=== PATIENT | male | born 1985 | race Hispanic/Latino ===

== ENCOUNTER 2024-08-30 14:48 | Emergency (ER) | payer BC ==
[2024-08-30] MEDS ORDERED: KETOROLAC 30 MG/ML INJ ONE (15:31)
[2024-08-30] MEDS ORDERED: NA CHLORIDE 0.9% 1,000 ML ONE (15:31)
[2024-08-30] MEDS ORDERED: ONDANSETRON 4 MG/2 ML VIAL ONE (15:31)
[2024-08-30 15:52] LABS: Absolute Basophils 0.1 K/uL (0-0.5); Absolute Eosinophils 0.1 K/uL (0-0.5); Absolute Lymphocytes (CBC) 1.9 K/uL (0.7-4.9); Absolute Monocytes 0.6 K/uL (0.1-1.3); Absolute Neutrophil 6.5 K/uL (1.8-8.0); Eosinophils % 1.6 % (0-4.4); Hematocrit 44.1 % (39.6-49.0); Lymphocytes % 20.9 % (15.3-44.8); MCH 29.4 pg (27.0-35.0); MCHC 36.4 g/dL (32.0-36.0); MCV 80.7 fL (80-100); MPV 8.4 fL (7.6-11.3); Monocytes % 6.8 % (3.3-12.3); Neutrophils % 69.7 % (41.7-73.7); Nucleated RBC Absolute Count 0.2 (0-0); Nucleated Red Blood Cells % 1.6 % (0-0); Platelets 255 thou/uL (152-406); RBC Red Blood Cell Count 5.46 M/uL (4.33-5.43)
[2024-08-30 16:17] LABS: Albumin 3.9 g/dL (3.4-5.0); Albumin/Globulin Ratio 1.1 (1.1-1.8); Anion Gap 13.7 mEq/L (5.0-15.0); Globulin 3.7 g/dL (2.3-3.5); Potassium 3.7 mEq/L (3.5-5.1); Protein, Total 7.6 g/dL (6.4-8.2)
--- NOTE | 2024-08-30 17:39 | RAD REPORT ---
EXAMINATION: CT Abdomen Pelvis W Contrast CLINICAL INDICATION: Male, 38 years old. ABD PAIN TECHNIQUE: CT abdomen and pelvis was performed, after the administration of IV contrast, as [facility]. Axial, sagittal and coronal reconstructions were obtained. One or more of the following dose reduction techniques were used: Automated exposure control, adjustment of the mA and k V according to patient size, and iterative reconstruction. Unless otherwise specified, incidental findings do not require dedicated imaging follow-up. COMPARISON: No prior exam. FINDINGS: LOWER CHEST: The visualized lung bases are clear. LIVER: Mild fatty liver is present. No focal lesion or biliary dilataion is seen. BILIARY SYSTEM: No suspicious abnormalities. SPLEEN: Normal size. No focal lesion. PANCREAS: No mass, ductal dilation, or luann-pancreatic fluid. ADRENALS: Normal; no mass. KIDNEYS: Normal size and contour. No hydronephrosis. URINARY BLADDER: Unremarkable. GASTROINTESTINAL TRACT: No evidence of free air, significant intra-abdominal free fluid, bowel obstru ction or abscess. APPENDIX: Normal appendix. LYMPH NODES: No lymphadenopathy. MUSCULOSKELETAL: No acute or suspicious osseous abnormality. ADDITIONAL FINDINGS: None. IMPRESSION: No acute abnormalities seen in the abdomen or pelvis. Diffuse hepatic steatosis.
--- NOTE | 2024-08-30 17:49 | EDPHYS ---
Physician Documentation [facility] Name: Jaspal Rivera Age: 38 yrs Sex: Male : 1985 Arrival Date: 08/30/2024 Time: 14:48 Bed 11 Private MD: ED Physician Myles Ng HPI: 08/30 14:54 This 38 yrs old Male presents to ER via Unassigned with complaints of kb Abdominal Pain, Vomiting. 14:54 Pt is a 38 year old male who presents for LLQ pain that has been intermittent for a kb couple of months. States he started having nausea, dry heaving and dizziness 2 days ago at work so he went home and it got better. States he started having LLQ pain and nausea again today. . Historical: - Allergies: 14:58 Amoxicillin; ll1 - Home Meds: 14:58 None [Active]; ll1 - PMHx: 14:58 Pancreatitis; High Cholesterol; ll1 - PSHx: 14:58 None; ll1 - Immunization history:: Adult Immunizations up to date. - Infectious Disease History:: Denies. - Social history:: Smoking status: Patient denies any tobacco usage or history of. ROS: 14:56 Constitutional: As per HPI kb Exam: 14:57 Constitutional: This is a well developed, well nourished patient who is awake, alert, kb and in no acute distress. Head/Face: Normocephalic, atraumatic. ENT: Moist Mucous membranes Cardiovascular: Regular rate Respiratory: Respirations even and unlabored. No increased work of breathing. Talking in full sentences Skin: Warm, dry with normal turgor. Normal color. MS/ Extremity: Pulses equal, no cyanosis. Neurovascular intact. Full, normal range of motion. Neuro: Awake and alert, GCS 15, oriented to person, place, time, and situation. 14:57 Abdomen/GI: Inspection: abdomen appears normal, Bowel sounds: normal, Palpation: soft, in all quadrants, mild abdominal tenderness, in the left lower quadrant, Vital Signs: 14:58 BP 193 / 121; Pulse 92; Resp 18; Temp 98.5; Pulse Ox 100% ; Weight 108.86 kg; Height 5 ll1 ft. 11 in. ; Pain 5/10; 16:13 BP 163 / 111; Pulse 66; Resp 18; Pulse Ox 100% on R/A; mb9 17:35 BP 150 / 100; Pulse 60; Resp 16; Pulse Ox 100% on R/A; mb9 18:16 BP 155 / 98; Pulse 67; Resp 18; Pulse Ox 100% on R/A; mb9 14:58 Body Mass Index 33.47 (108.86 kg, 180.34 cm) ll1 14:58 Pain Scale: Adult ll1 MDM: 14:52 Medical Screening Exam initiated kb 17:48 Differential diagnosis: diverticulitis, gastritis, gastroesophageal reflux disease, kb non-specific abd pain, pancreatitis, Peptic Ulcer Disease, Ureterolithiasis, urinary tract infection. Data reviewed: vital signs, nurses notes. Counseling: I had a detailed discussion with the patient and/or guardian regarding the historical points, exam findings, and any diagnostic results supporting the discharge/admit diagnosis, lab results, radiology results, the need for outpatient follow up, a family practitioner, to return to the emergency department if symptoms worsen or persist or if there are any questions or concerns that arise at home. 08/30 14:56 Order name: CBC with Diff; Complete Time: 16:03 kb 08/30 14:56 Order name: CMP; Complete Time: 16:19 kb 08/30 14:56 Order name: Lipase; Complete Time: 16:19 kb 08/30 14:56 Order name: CPK; Complete Time: 16:19 kb 08/30 14:56 Order name: CT Abd/Pelvis - IV Contrast Only; Complete Time: 17:42 kb 08/30 14:56 Order name: IV Saline Lock; Complete Time: 15:47 kb 08/30 14:56 Order name: Labs collected and sent; Complete Time: 15:47 kb Administered Medications: 15:42 Drug: Ondansetron IVP 4 mg IVP once; over 2 minutes Route: IVP; Site: right forearm; mb9 16:23 Follow up: Response: No adverse reaction mb9 15:47 Drug: TORadol - Ketorolac IVP 15 mg IVP once Route: IVP; Site: right forearm; mb9 16:23 Follow up: Response: No adverse reaction mb9 15:47 Drug: NS 0.9% IV 1000 ml IV at 1 bolus Per protocol; to be given as a bolus over 60 mb9 minutes Route: IV; Rate: 1 bolus; Site: right forearm; 17:35 Follow up: Response: No adverse reaction; IV Status: Completed infusion mb9 Disposition Summary: 08/30/24 17:49 Discharge Ordered Notes: Location: Home kb Condition: Stable kb Diagnosis - Lower abdominal pain, unspecified kb Followup: kb - With: Emergency Department - When: As needed - Reason: Worsening of condition Followup: kb - With: Private Physician - When: 2 - 3 days - Reason: Recheck today's complaints, Continuance of care, Re-evaluation by your physician Discharge Instructions: - Discharge Summary Sheet kb - Abdominal Pain, Adult, [id number] kb Forms: - Medication Reconciliation Form kb - Antibiotic Education kb - Prescription Opioid Use kb - Patient Portal Instructions kb - Leadership Thank You Letter kb - Work release form mb9 Prescriptions: - Zofran 4 mg Oral tablet - take 1 tablet ORAL route every 6 hours As needed; 12 tablet; Refills: 0, kb Product Selection Permitted - Diclofenac Sodium 75 mg Oral tablet, delayed release (enteric coated) - take 1 tablet ORAL route 2 times per day As needed; 30 tablet; Refills: 0, kb Product Selection Permitted Addendum: 08/31/2024 23:30 Co-signature as Attending Physician, Myles Ng MD I agree with the assessment and c dela cruz plan of care. Signatures: Dispatcher [employer] EDZayra Delgado, LINOLEUM INSTALLER-C LINOLEUM INSTALLER-Myles Encarnacion MD MD cha Lewis, Lynsay, RN RN ll1 Yolande, Ene Osman, RN RN mb9 Corrections: (The following items were deleted from the chart) 08/30 14:56 14:56 CBC+H.LAB.BRZ ordered. EDMS EDMS 14:56 14:56 COMPREHENSIVE METABOLIC PANEL+C.LAB.BRZ ordered. EDMS EDMS 14:56 14:56 LIPASE+C.LAB.BRZ ordered. EDMS EDMS 14:56 14:56 CREATINE PHOSPHOKINASE+C.LAB.BRZ ordered. EDMS EDMS 14:56 14:56 Abdomen Pelvis W Con+CT.RAD.BRZ ordered. EDMS EDMS
--- NOTE | 2024-08-30 17:49 | ER ---
Nurse's Notes [facility] Name: Jaspal Rivera Age: 38 yrs Sex: Male : 1985 Arrival Date: 08/30/2024 Time: 14:48 Bed 11 Private MD: Diagnosis: Lower abdominal pain, unspecified Presentation: 08/30 14:58 Chief complaint: Patient states: L sided abdominal pain for over 2 months. 2 days with ll1 N/V. Coronavirus screen: Client denies travel out of the [place] in the last 14 days. At this time, the client does not indicate any symptoms associated with coronavirus-19. Ebola Screen: Patient denies travel to an Ebola-affected area in the 21 days before illness onset. Initial Sepsis Screen: Does the patient meet any 2 criteria? No. Patient's initial sepsis screen is negative. Does the patient have a suspected source of infection? No. Patient's initial sepsis screen is negative. Risk Assessment: Do you want to hurt yourself or someone else? Patient reports no desire to harm self or others. Onset of symptoms was June 25, 2024. 14:58 Method Of Arrival: Ambulatory ll1 14:58 Acuity: DALE 3 ll1 Historical: - Allergies: 14:58 Amoxicillin; ll1 - Home Meds: 14:58 None [Active]; ll1 - PMHx: 14:58 Pancreatitis; High Cholesterol; ll1 - PSHx: 14:58 None; ll1 - Immunization history:: Adult Immunizations up to date. - Infectious Disease History:: Denies. - Social history:: Smoking status: Patient denies any tobacco usage or history of. Screenin:48 [facility] ED Fall Risk Assessment (Adult) History of falling in the last 3 months, mb9 including since admission No falls in past 3 months (0 pts) Confusion or Disorientation No (0 pts) Intoxicated or Sedated No (0 pts) Impaired Gait No (0 pts) Mobility Assist Device Used No (0 pt) Altered Elimination No (0 pt) Score/Fall Risk Level. Abuse screen: Denies threats or abuse. Nutritional screening: No deficits noted. Tuberculosis screening: No symptoms or risk factors identified. Assessment: 15:48 General: Appears in no apparent distress. Behavior is calm, cooperative. Pain: mb9 Complains of pain in abdomen Pain radiates to RLQ and LLQ Quality of pain is described as aching, Pain began 2 weeks ago Is continuous. Neuro: Phillips Agitation-Sedation Scale (RASS): 0 - Alert and Calm Level of Consciousness is awake, alert, obeys commands, Oriented to person, place, time, situation, Appropriate for age. Cardiovascular: Patient's skin is warm and dry. Respiratory: Airway is patent Respiratory effort is even, unlabored, Respiratory pattern is regular, symmetrical. GI: Abdomen is round non-distended, Bowel sounds present X 4 quads. Abd is soft Abdomen is tender to palpation in suprapubic area, right lower quadrant and left lower quadrant Reports diarrhea, nausea, vomiting. : No signs and/or symptoms were reported regarding the genitourinary system. EENT: No signs and/or symptoms were reported regarding the EENT system. Derm: Skin is pink, warm \T\ dry. Musculoskeletal: Range of motion: intact in all extremities. 17:35 Reassessment: No changes from previously documented assessment. Patient and/or family mb9 updated on plan of care and expected duration. Pain level reassessed. Patient is alert, oriented x 3, equal unlabored respirations, skin warm/dry/pink. 18:12 Reassessment: Patient appears in no apparent distress at this time. No changes from mb9 previously documented assessment. Patient and/or family updated on plan of care and expected duration. Pain level reassessed. Vital Signs: 14:58 BP 193 / 121; Pulse 92; Resp 18; Temp 98.5; Pulse Ox 100% ; Weight 108.86 kg; Height 5 ll1 ft. 11 in. ; Pain 5/10; 16:13 BP 163 / 111; Pulse 66; Resp 18; Pulse Ox 100% on R/A; mb9 17:35 BP 150 / 100; Pulse 60; Resp 16; Pulse Ox 100% on R/A; mb9 18:16 BP 155 / 98; Pulse 67; Resp 18; Pulse Ox 100% on R/A; mb9 14:58 Body Mass Index 33.47 (108.86 kg, 180.34 cm) ll1 14:58 Pain Scale: Adult ll1 ED Course: 14:51 Patient arrived in ED. mr 14:52 Zayra Chiu FNP-C is [facility]. kb 14:52 Myles Ng MD is Attending Physician. kb 14:57 Radiology exam delayed due to lab results not completed at this time. (BUN/Creatinine) jc4 IV insertion attempt and/or patient not having appropriate IV at this time. 14:59 Triage completed. ll1 14:59 Arm band placed on. ll1 15:35 Ene Lanier, RN is Primary Nurse. mb9 15:48 Bed in low position. Call light in reach. Side rails up X 1. Provided Education on: mb9 press call light if needing anything. Client placed on continuous cardiac and pulse oximetry monitoring. NIBP monitoring applied. 15:48 Initial lab(s) drawn, by me, sent to lab. Inserted saline lock: 20 gauge in right mb9 forearm, using aseptic technique. Blood collected. Flushed with 10 mL NS. 15:50 No provider procedures requiring assistance completed. mb9 17:27 CT Abd/Pelvis - IV Contrast Only In Process Unspecified. EDMS 18:13 IV discontinued, intact, bleeding controlled, No redness/swelling at site. Pressure mb9 dressing applied. Administered Medications: 15:42 Drug: Ondansetron IVP 4 mg IVP once; over 2 minutes Route: IVP; Site: right forearm; mb9 16:23 Follow up: Response: No adverse reaction mb9 15:47 Drug: TORadol - Ketorolac IVP 15 mg IVP once Route: IVP; Site: right forearm; mb9 16:23 Follow up: Response: No adverse reaction mb9 15:47 Drug: NS 0.9% IV 1000 ml IV at 1 bolus Per protocol; to be given as a bolus over 60 mb9 minutes Route: IV; Rate: 1 bolus; Site: right forearm; 17:35 Follow up: Response: No adverse reaction; IV Status: Completed infusion mb9 Medication: 15:48 VIS not applicable for this client. mb9 Outcome: 17:49 Discharge ordered by . kb 18:13 Discharged to home ambulatory, mb9 18:13 Condition: stable 18:13 Discharge instructions given to patient, Instructed on discharge instructions, follow up and referral plans. Demonstrated understanding of instructions, follow-up care, medications, Prescriptions given X 2, 18:16 Patient left the ED. mb9 Signatures: Dispatcher [employer] EDMS Zayra Chiu, TELLO-C SENIOR TECHNICAL SUPPORT ENGINEER-CkEne Randhawa, Reg Reg mr Taina Tobaradrienne, RN RN ll1 Yolande, Leah RN RN mb9 Gregory Jain [email or web address] Corrections: (The following items were deleted from the chart) 15:47 15:47 TORadol - Ketorolac IVP 15 mg IVP in right antecubital mb9 mb9
[2024-08-30 23:32] VITALS: TEMP 98.5; O2SAT 100
[2024-08-30 23:37] VITALS: BP 155/98
== END 2024-08-30 18:16 | disposition home or self-care (01) ==
LOC: ER 14:48
DX: R10.32 Left lower quadrant pain (principal)
CPT/HCPCS: 96361; 85025; 36415; 82550; 83690; 80053; 74177; 96375; 96374; 99284; Q9967; J2405; J7030